=== PATIENT | male | born 1940 | race Caucasian/White ===

== ENCOUNTER 2016-08-24 02:28 | Inpatient (IN) | payer MEDICARE ==
--- NOTE | ~2016-08-24 | CR72 ---
[facility] A Service of [facility] RADIOLOGY TEXT RESULTS PATIENT: VILMA RYAN LOCATION: [place] [address] : 40 UNIT #: [id number] AGE: [address]: Natalia Munguia MD SEX: M ORDER DR: [id number] [facility] [address] [place], [place] [address] [id number] I MR#: [id number] #: [id number] NAME: FLYNN RYAN : 1940 SEX: M STUDY DATE/TIME: 08/24/2016 2:54 UNIT: [facility] ROOM: [facility] STUDY DESCRIPTION: CR Chest Single View Portable Attending Physician: Natalia Munguia M.D. Ordering Physician: Shade Jimenez M.D. Primary Care Physician: No Primary Care Physician MEDICAL IMAGING REPORT This report is preliminary unless electronic signature is present EXAM Chest x-ray, 08/24/2016. HISTORY 76-year-old male in the ED complaining of a 2-day history of shortness of air and weakness. TECHNIQUE AP portable chest x-ray. FINDINGS The exam shows moderately dense airspace consolidation throughout portions of the right lower lobe and right infrahilar region. Right upper lung and left lung are clear. Generalized pulmonary hyperinflation suggesting COPD. Heart size and pulmonary vascularity are normal. Blunting of the right costophrenic angle due to fluid or pleural thickening. Numerous tiny benign calcified granulomas scattered throughout both lungs. IMPRESSION 1. Dense airspace consolidation in the right infrahilar region and right lower lobe. Remaining portions of both lungs are clear. 2. Fluid or pleural thickening in the right costophrenic angle. 3. Likely COPD. 4. Numerous benign calcified granulomas scattered throughout both lungs. Dictated by... Boris Breaux M.D. THIS IS AN ELECTRONICALLY VERIFIED REPORT Boris Breaux M.D. at 08/24/2016 9:54 PM [id number] [facility] A Service of [facility] RADIOLOGY TEXT RESULTS PATIENT: VILMA RYAN LOCATION: [facility] 552-01 : 40 UNIT #: [id number] AGE: [address]: Natalia Munguia MD SEX: M ORDER DR: TD: 08/24/2016 13:53 JOB #: [id number] MEDICAL IMAGING REPORT Page 1 of 1 COPY
--- NOTE | ~2016-08-24 | CO ---
Unit #: [id number] #: [id number] Patient: VILMA RYAN [id number] [address] [address] [id number] I MR#: [id number] NAME: VILMA RYAN ROOM: 55 Age: 76 Sex: M Admission Date: 08/24/2016 : 1940 Attending Physician: Natalia Munguia M.D. Primary Care Physician: No Primary Care Physician Consultation Date: 08/24/2016 CONSULTATION REPORT REASON FOR CONSULTATION ICU management. HISTORY OF PRESENT ILLNESS This is a very pleasant, but poor historian, 76-year-old male with a past medical history significant for advanced chronic obstructive pulmonary disease, malnutrition, hypertension, hyperlipidemia and atrial fibrillation. The patient presented to the emergency room with progressive shortness of breath and cough for the last few days. He also admitted having some subjective fever, but he denied any nausea, vomiting or diarrhea. He stated that he has not been in the hospital for a while and he had 4 pneumonias over the last 10 years. The patient is on Symbicort and nebulizer at home. PAST MEDICAL HISTORY 1. Chronic obstructive pulmonary disease. 2. Gastroesophageal reflux disease. 3. Hypertension. 4. Hyperlipidemia. 5. Atrial fibrillation. 6. Malnutrition. PAST SURGICAL HISTORY None. SOCIAL HISTORY The patient quit smoking in 2002 after approximately 80 pack-year smoking history. He used to be a heavy drinker, but he quit many years ago. No history of drug abuse. He lives at home with his . FAMILY HISTORY Noncontributory. ALLERGIES No known drug allergies. HOME MEDICATIONS 1. Omeprazole. 2. Lopressor. 3. Nitrate. 4. Aspirin. 5. Coumadin. 6. Lisinopril. Unit #: [id number] #: [id number] Patient: VILMA RYAN 7. Pravastatin. 8. Amiodarone. 9. Fish oil. 10. Tylenol. REVIEW OF SYSTEMS Twelve point review of systems was obtained and negative except for that mentioned in the history of present illness. PHYSICAL EXAMINATION GENERAL: The patient is currently off BiPAP, in no acute distress. VITALS: Temperature 98.1, respiratory rate 16, O2 saturations 98%. HEENT: Atraumatic, normocephalic. Pupils equally round and reactive to light and accommodation. Extraocular muscles intact. NECK: Supple. No jugular venous distension. No lymphadenopathy. CHEST: Decreased breath sounds bilaterally with fine rhonchi at the bases. HEART: S1 and S2. No murmur, gallop or rub. ABDOMEN: Soft and nontender. Bowel sounds positive. No hepatosplenomegaly. EXTREMITIES: No edema or cyanosis. SKIN: No rashes. NEUROLOGIC: Awake, alert and oriented times three. No focal motor/sensory deficits. DIAGNOSTIC STUDIES LABORATORY: Creatinine 0.8, sodium 127, CO2 23, white blood cell count 9.7, hemoglobin 4.06, platelets 259. ASSESSMENT 1. Acute hypoxic respiratory failure. 2. Community acquired pneumonia. 3. Acute exacerbation of chronic obstructive pulmonary disease. 4. Malnutrition. 5. Gastroesophageal reflux disease. 6. Atrial fibrillation. PLAN 1. The patient will be weaned off BiPAP to oxygen and will titrate down as needed. 2. Aggressive pulmonary toilet, bronchodilator and IV steroids. 3. Will change antibiotics to Levaquin given his advanced chronic obstructive pulmonary disease and pneumonia. 4. Will continue the patient on Coumadin and monitor INR. 5. Will need physical therapy. Dictated by... Mellissa Sims M.D. EA/nael TD: 08/25/2016 06:33 JOB #: [id number] Unit #: [id number] #: [id number] Patient: VILMA RYAN CONSULTATION REPORT Page 1 of 1 X MELLISSA SPENCE MD X CONSULTATION REPORT
--- NOTE | ~2016-08-24 | DS ---
Unit #: [id number] #: [id number] Patient: VILMA RYAN [id number] [address] [place], [place] [address] [id number] I MR#: [id number] NAME: VILMA RYAN ROOM: 55 Age: 76 Sex: M Admission Date: 08/24/2016 : 1940 Discharge Date: 08/27/2016 Attending Physician: Naatlia Munguia M.D. Primary Care Physician: No Primary Care Physician DISCHARGE SUMMARY REASON FOR ADMISSION Acute hypoxic respiratory failure. HISTORY OF PRESENT ILLNESS/HOSPITAL COURSE Patient is a very pleasant, 76-year-old male with prior hospital admissions to other facilities secondary to acute hypoxic respiratory failure and/or COPD exacerbation with no prior history of ventilation requirement who presented with difficulty breathing for approximately 7 days. Over the past 48 hours prior to admission, he could only ambulate just a few steps without having to stop. He was admitted after it was noted his O2 saturations were in the low 80s. He was placed on telemetry floor. Consultation was placed to pulmonary services. Dr. Proctor and associates saw and evaluated patient. Initial chest x-ray raised the possibility of acute infiltrate and thus he was treated on the premise of community-acquired pneumonia. In consideration of his longstanding history of tobacco abuse as well as respiratory failure, patient underwent a CT chest, noncontrast, which revealed extensive airspace disease in the right lower lobe with areas of dinora consolidation in the mid to inferior right lower lobe. Appearance is most consistent with pneumonia. Followup to complete radiographic resolution was recommended. Dr. Proctor recommended follow up in approximately four weeks for repeat CT. Underlying COPD with extensive emphysema was also noted. Areas of mucous plugging were noted as well. There was also noted to be extensive atherosclerotic arterial calcifications in the coronary and systemic circulation as well as a moderate hiatal hernia. Findings were consistent with GERD and, in consideration of the right lower lobe pneumonia, possible underlying aspiration was considered. In regards to the calcifications, which were noted around coronary arteries, order was placed for 2D echocardiogram to be performed to ascertain heart function and/or ejection fraction; however, patient refused. He stated that he wanted to speak to his primary care physician as an outpatient in regards to cardiac workup. In regards to possibility of aspiration pneumonia as well as increased gastroesophageal reflux, we placed consultation to speech therapy services who saw and evaluated patient and recommended video function swallow study to which patient refused. Again, he stated that he felt as though he Unit #: [id number] #: [id number] Patient: VILMA RYAN could swallow fine. I discussed with him the possibility of upper GI endoscopy and/or GI consultation. However, he refused and stated that he would follow up with Dr. Mathew as an outpatient for ongoing care. At this point in time, patient is currently on 3-4 liters of O2, which represents a new requirement. He will be discharged on the same as he has been cleared by pulmonary services. Dr. Proctor has recommended p.o. amoxicillin 500 mg t.i.d. for 10 days. He is to continue his home nebulized solution as well as other routine medications, as detailed below. He will follow up with Dr. Mathew as an outpatient for ongoing care. FINAL DISCHARGE DIAGNOSES 1. Acute hypoxic respiratory failure. 2. Gastroesophageal reflux disease with possible aspiration. 3. Right lower lobe consolidation. 4. Community-acquired pneumonia versus aspiration pneumonia. 5. Prior history of paroxysmal atrial fibrillation on chronic anticoagulation with Coumadin. 6. Hyperlipidemia. 7. Tobacco abuse. 8. Glaucoma. FINAL DISCHARGE MEDICATIONS 1. DuoNeb aerosol solution q.6 hours scheduled. 2. Symbicort 160/4.5 two puffs b.i.d. 3. Amiodarone 200 mg p.o. every day. 4. Tylenol 500 mg p.o. q.6 p.r.n. 5. Coumadin 2.5 mg p.o. every day. 6. Lopressor 25 mg p.o. b.i.d. 7. Pravastatin 40 mg p.o. q.h.s. 8. Lisinopril 10 mg p.o. q.h.s. 9. Aspirin 81 mg daily. 10. Amoxicillin 1000 mg p.o. t.i.d. x10 days. 11. Protonix 40 mg p.o. every day. 12. Imdur 30 mg p.o. every day. DISCHARGE CONDITION Stable. DISCHARGE DISPOSITION Home. FOLLOWUP Follow up with Dr. Mathew, patient's primary care physician, as an outpatient within 7 days. Dictated by... Koko Buck/jocelynn TD: 08/28/2016 10:29 JOB #: [id number] Unit #: [id number] #: [id number] Patient: VILMA RYAN DISCHARGE SUMMARY Page 1 of 1 X Natalia Munguia MD X DISCHARGE SUMMARY
--- NOTE | ~2016-08-24 | EKG ---
PATIENT: FLYNN RYAN UNIT #: [id number] Ventricular Rate: 97 BPM Atrial Rate: 97 BPM P-R Interval: 160 ms QRS Duration: 154 ms Q-T Interval: 406 ms QTC Calculation(Bezet): 515 ms P Crawford: 78 degrees Calculated R Crawford: 31 degrees Calculated T Crawford: 28 degrees Diagnosis Line: Normal sinus rhythm Diagnosis Line: Left bundle branch block Diagnosis Line: Abnormal ECG Diagnosis Line: No previous ECGs available Diagnosis Line: Confirmed by CHICHI WALKER MD ([id number]) on Diagnosis Line: 08/24/2016 2:02:35 PM INTERPRETING MD: OLLIE
--- NOTE | ~2016-08-24 | HP ---
Unit #: [id number] #: [id number] Patient: FLYNN RYAN [id number] [address] [address] [id number] I MR#: [id number] NAME: FLYNN RYAN ROOM: 552 Age: 76 Sex: M Admission Date: 08/24/2016 : 1940 Attending Physician: Natalia Munguia M.D. Primary Care Physician: No Primary Care Physician HISTORY AND PHYSICAL REASON FOR ADMISSION Acute hypoxic respiratory failure. HISTORY OF PRESENT ILLNESS Patient is a very pleasant, 76-year-old male with prior hospitalizations at other facilities secondary to COPD exacerbation, but no prior hospitalization in our particular facility who states that over the past several days he had decreased difficulty with breathing and difficulty with dyspnea on exertion. He states over the past 48 hours, had worsened to the point where he could only ambulate a few steps. He called EMS services. Upon arrival, his otherwise saturations were noted to be 80% and, subsequently, he was brought to the ER for further evaluation. He states that he tried to use his inhaler at home with minimal success. PAST MEDICAL HISTORY COPD, GERD, hypertension, hyperlipidemia, and I believe atrial fibrillation on chronic anticoagulation with Coumadin; however, patient is unsure. PAST SURGICAL HISTORY None. CURRENT HOME MEDICATIONS 1. Omeprazole. 2. Lopressor. 3. Isosorbide dinitrate. 4. Aspirin. 5. Coumadin. 6. Lisinopril. 7. Pravastatin. 8. Amiodarone. 9. Symbicort. 10. Garlic. 11. Fish oil. 12. Tylenol p.r.n. ALLERGIES No known drug allergies. FAMILY HISTORY Noncontributory and not pertinent in this advanced age individual. SOCIAL HISTORY Patient quit smoking 2002 after approximate 80 pack/year smoking history. Unit #: [id number] #: [id number] Patient: FLYNN RYAN He also states he used to drink alcohol heavily in the past. He has not done so in 14 years. He denies illicit drug use. Lives at home with his . REVIEW OF SYSTEMS Please see HPI. Twelve-point otherwise negative, except for those pertinent positives noted in the HPI. PHYSICAL EXAMINATION ON ADMISSION VITAL SIGNS: Temperature 97.8, pulse 99, respiratory rate 24, and blood pressure 157/102. GENERAL APPEARANCE: 76-year-old male sitting up in no acute distress. Currently on 10 liters O2. HEENT: Head: Atraumatic and normocephalic. NECK: Supple. Accessory muscle use noted. No JVD noted. CVS: S1 and S2, irregularly irregular. No heart murmur heard. RESPIRATORY: Coarse rhonchi noted bilaterally with prolonged expiration. GI/ABDOMEN: Nontender and nondistended. LOWER EXTREMITIES: No evidence of lower extremity edema. SKIN: Upper extremities reveal numerous bruising and/or scar polo. Lower extremities reveal chronic venostasis changes. NEUROLOGIC: Patient is A and O x3. PSYCHIATRIC: Patient demonstrates normal mood and affect. ER COURSE Patient received Solu-Medrol, Rocephin, as well as Zithromax. DIAGNOSTIC STUDIES LABORATORY: Initial laboratory studies yielded cardiac enzymes, first set, negative. INR 1.9. BMP: Sodium showing at 127 and creatinine normal. LFTs normal. Lactic acid 1.3. CBC shows a white count of 9.7 and hemoglobin 13.5. IMAGING: Initial chest x-ray, preliminary read, shows acute infiltrate. Official read currently pending. INITIAL IMPRESSION 1. Acute hypoxic respiratory failure. 2. Acute exacerbation of COPD. 3. Community-acquired pneumonia. 4. Chronic anticoagulation, I believe, secondary to atrial fibrillation. 5. Hypertension. 6. Hyperlipidemia. PLAN Admission telemetry floor. Solu-Medrol. Aerosols. IV antibiotics. CT chest. Routine laboratory studies. Obtain previous records from PCP office into reasoning behind Coumadin. Symptom management. Try to wean O2 as much as tolerated. Further hospital course to follow. Dictated by Koko Buck/jocelynn TD: 08/24/2016 13:17 Unit #: [id number] #: [id number] Patient: FLYNN RYAN JOB #: [id number] HISTORY AND PHYSICAL Page 1 of 1 X Natalia Munguia MD HISTORY AND PHYSICAL
--- NOTE | ~2016-08-24 | CT57 ---
[facility] A Service of [facility] RADIOLOGY TEXT RESULTS PATIENT: VILMA RYAN LOCATION: [facility] 55- : 40 UNIT #: [id number] AGE: [address]: Natalia Munguia MD SEX: M ORDER DR: [id number] [facility] [address] [place], [place] [address] [id number] I MR#: [id number] Acc #: [id number] NAME: VILMA RYAN : 1940 SEX: M STUDY DATE/TIME: 08/24/2016 13:58 UNIT: [facility] ROOM: [facility] STUDY DESCRIPTION: CT Chest Wo Cont Attending Physician: Natalia Munguia M.D. Ordering Physician: Natalia Munguia M.D. Primary Care Physician: No Primary Care Physician MEDICAL IMAGING REPORT This report is preliminary unless electronic signature is present EXAM Chest CT, 08/24/2016. HISTORY Question pneumonia. Abnormal chest x-ray. Hypoxia, short of air for 2 days. History of COPD. TECHNIQUE CT chest performed without administration of intravenous contrast. This CT exam was performed with one or more of the following radiation dose reduction techniques: automatic exposure control, adjustment of mA and/or kV according to patient size, and iterative reconstruction. COMPARISON Comparison to chest radiograph from same date. FINDINGS Visualized thyroid unremarkable. No axillary adenopathy. Precarinal 11 mm short-axis lymph node, likely reactive in nature given findings elsewhere on scan. There is an approximately 12 mm short-axis right hilar node also favored to be reactive in nature. Heart is normal in size. There are prominent coronary arterial calcifications. Trace right pleural fluid. Not a drainable fluid collection. The liver shows 12 mm left hepatic lobe segment 2 cyst. No suspicious hepatic parenchymal abnormality. Visualized gallbladder unremarkable. Spleen, pancreas, adrenal glands, upper renal poles unremarkable. No upper abdominal adenopathy. Moderate hiatal hernia. There is some fluid in the esophagus. This likely reflects gastroesophageal reflux and could place the patient at increased risk for aspiration. There is a moderate amount of food debris in the stomach. Correlate with ingestion history. Probable duodenal diverticulum second portion of duodenum measuring about 3.8 cm in diameter. This may represent volume averaging through a portion [facility] A Service of [facility] & [facility] RADIOLOGY TEXT RESULTS PATIENT: VILMA RYAN LOCATION: [facility] 552-01 : 40 UNIT #: [id number] AGE: [address]: Natalia Munguia MD SEX: M ORDER DR: of the hepatic flexure of colon. The lungs show underlying emphysema. Irregular densities in the bilateral upper lung zones with some upward retraction of bronchovascular structures favored to represent chronic fibrotic change. Correlation with any prior studies would be useful. Ill-defined branching density in the left apex measuring approximately 6-10 mm. Probably architecturally distorted vascular structure or mucus impacted bronchial. True nodule not excluded. Three-month CT followup recommended unless there are outside studies demonstrating prolonged stability. Bronchial wall thickening in the lungs bilaterally, more pronounced in the bilateral lower lobes and generally more pronounced on the right than left. Multiple calcified granulomata. Small focus of patchy density left lower lobe posteriorly could represent a small focus of pneumonia, atelectasis, or chronic change. Extensive patchy densities throughout the right lower lobe with some areas of bronchial mucous plugging and dense peripheral airspace disease. Appearance favored to represent extensive right lower lobe pneumonia with areas of dinora consolidation. Some of the margins of the peripheral areas of consolidation have vaguely rounded configurations. Followup to complete radiographic resolution is recommended. If findings do not resolve in the near-term with treatment for pneumonia, then further evaluation with bronchoscopy may be warranted. Again, pneumonia is favored. Given gastroesophageal findings and distribution of right lower lobe presumed pneumonia, correlate with any clinical concern for aspiration. Wall thickening likely reflects components of both acute and chronic bronchitis. Atherosclerotic arterial calcifications. No aortic aneurysm. 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 No acute-appearing bony abnormality. IMPRESSION 1. Extensive airspace disease in the right lower lobe with areas of dinora consolidation in the periphery of the mid to inferior right lower lobe. Appearance most consistent with pneumonia. Some of the areas of airspace consolidation have vaguely rounded configuration. Followup to complete radiographic resolution is strongly recommended. If the findings do not resolve in the near-term with treatment for pneumonia, then further assessment with bronchoscopy or percutaneous sampling would be recommended. Pneumonia is strongly favored. 2. Underlying COPD with extensive emphysema. Bronchial wall thickening in the lungs bilaterally, more pronounced in the right lung overall and in the mid to lower lung zones bilaterally likely reflecting components of both acute and chronic bronchitis. 3. Areas of mucous plugging in the right lower lobe. 4. Somewhat tubular branching structure in the left lung apex measuring 6-10 mm in diameter. Exact etiology unclear. It may represent architecturally distorted mucus impacted bronchus or volume averaging through an usual vascular structure. True pulmonary nodule not excluded. 3-month CT followup recommended. 5. Extensive atherosclerotic arterial calcifications in coronary and systemic circulation. [facility] A Service of [facility] RADIOLOGY TEXT RESULTS PATIENT: VILMA RYAN LOCATION: [facility] : 40 UNIT #: [id number] AGE: [address]: Natalia Munguia MD SEX: M ORDER DR: 6. There are some mildly enlarged mediastinal and right hilar nodes, likely benign/reactive in nature and related to the presumed right pneumonia. 7. Moderate hiatal hernia. Air and fluid seen in the esophagus. Findings suggest gastroesophageal reflux, given this appearance and the right lower lobe presumed pneumonia. Correlate with any clinical concern for aspiration. 8. 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 No acute-appearing bony abnormality. 9. Left hepatic lobe cyst. 10. 3.8 cm second portion duodenum diverticulum versus volume averaging with colon. No acute abnormality suggested in the visualized upper abdomen. Dictated by... Oswaldo Espino M.D. THIS IS AN ELECTRONICALLY VERIFIED REPORT Oswaldo Espino M.D. at 08/26/2016 11:31 AM Luisa TD: 08/25/2016 07:16 JOB #: [id number] MEDICAL IMAGING REPORT Page 1 of 1 COPY
[2016-08-24 03:29] LABS: BASOPHIL% 0.2 % (0-2.5); EOSINOPHIL# 0.1 X10e3 (0-0.7); EOSINOPHIL% 0.6 % (0.0-7.0); HEMATOCRIT 40.1 % (38.0-50.0); HEMOGLOBIN 13.5 gm/dL (13.0-16.0); LYMPHOCYTE# 0.4 X10e3 (1.0-3.5); LYMPHOCYTE% 4.6 % (17.0-45.0); MEAN CORPUSCULAR HGB CONC 33.7 g/dL (30-36); MEAN PLATELET VOLUME 7.2 FL (6.5-11.5); MONOCYTE# 0.8 X10e3 (0-1.0); MONOCYTE% 7.9 % (3.0-12.0); NEUTROPHIL# 8.4 X10e3 (1.5-7.1); NEUTROPHIL% 86.7 % (40-75); PLATELET COUNT 259 X10e3 (140-420); RED BLOOD COUNT 4.66 X10e (3.90-5.60); RED CELL DISTRIBUTION WIDTH 13.6 % (11.0-15.5); WHITE BLOOD COUNT 9.7 X10e3 (4.0-10.5)
[2016-08-24 03:34] LABS: ARTERIAL BLD GAS O2 SATURATION 95.8 % (90.0-100.0); ARTERIAL BLOOD GAS ALLEN TEST NORMAL; ARTERIAL BLOOD GAS ART SITE RIGHT RADIAL; ARTERIAL BLOOD GAS HCO3 23.4 mmol/L; ARTERIAL BLOOD GAS MET HB 0.6 %sat (0.0-2.0); ARTERIAL BLOOD GAS PCO2 35.1 mmHg (35.0-45.0); ARTERIAL BLOOD GAS PO2 87.7 mmHg (80.0-100); ARTERIAL BLOOD GAS pH 7.433 (7.350-7.450); ARTERIAL DRAW? YES
[2016-08-24 03:42] LABS: POC - CKMB 11.5 ng/mL (0.0-7.9); POC - TROPONIN <0.05 ng/mL (<=0.05)
[2016-08-24 03:43] LABS: INR 1.9; PROTHROMBIN TIME (PATIENT) 20.1 SECONDS (9.6-11.5)
[2016-08-24 03:58] LABS: ALBUMIN SERUM 3.9 g/dL (3.5-5.0); BILIRUBIN, DIRECT 0.2 mg/dL (0.0-0.2); BILIRUBIN,INDIRECT 0.5 mg/dL (0.0-0.9); BILIRUBIN,TOTAL 0.7 mg/dL (0.2-2.0); BUN/CREATININE RATIO 22.5; CALCIUM SERUM 8.6 mg/dL (8.4-10.2); CREATININE SERUM 0.8 mg/dL (0.6-1.4); GLOM FILT RATE Estimated 86.8 mL/min (>60); POTASSIUM 4.6 mmol/L (3.5-5.1); PROTEIN TOTAL SERUM 7.1 g/dL (6.0-8.3)
[2016-08-24 04:08] LABS: DIFF IND NO
[2016-08-24] MEDS ORDERED: BRIMONIDINE5 ML OD (04:11)
[2016-08-24] MEDS ORDERED: LOPRESSOR PO (04:12)
[2016-08-24] MEDS ORDERED: OMEPRAZOLE20 M2 PO (04:12)
[2016-08-24] MEDS ORDERED: DORZOLAMIDE HCL10 M1 OU (04:12)
[2016-08-24] MEDS ORDERED: ISORDIL PO (04:13)
[2016-08-24] MEDS ORDERED: AMIODARONE HCL200 MG PO (04:13)
[2016-08-24] MEDS ORDERED: AMIODARONE HCL100 MG PO (04:16)
[2016-08-24] MEDS ORDERED: PRAVASTATIN SOD40 MG PO (04:16)
[2016-08-24] MEDS ORDERED: ASPIRIN81 M2 PO (04:17)
[2016-08-24] MEDS ORDERED: COUMADIN2.5 MG PO (04:17)
[2016-08-24] MEDS ORDERED: ACETAMINOPHEN PO (04:17)
[2016-08-24] MEDS ORDERED: LISINOPRIL10 MG PO (04:17)
[2016-08-24] MEDS ORDERED: ODORLESS GARL1250 MG PO (04:18)
[2016-08-24] MEDS ORDERED: FISH OIL300 MG PO (04:18)
[2016-08-24] MEDS ORDERED: SYMBICORT INH (04:18)
[2016-08-24] MEDS ORDERED: ALB/IPRATROPIUM/1 E2 INH (04:19)
[2016-08-25 06:08] LABS: INR 1.5; PROTHROMBIN TIME (PATIENT) 16.5 SECONDS (9.6-11.5)
[2016-08-25 06:14] LABS: CALCIUM SERUM 8.7 mg/dL (8.4-10.2); CREATININE SERUM 0.7 mg/dL (0.6-1.4); GLOM FILT RATE Estimated 91.7 mL/min (>60); POTASSIUM 4.2 mmol/L (3.5-5.1)
[2016-08-25 06:37] LABS: HEMATOCRIT 35.2 % (38.0-50.0); MEAN CELL VOLUME 86.6 FL (83-96); MEAN CORPUSCULAR HEMOGLOBIN 28.2 PG (28-34); MEAN CORPUSCULAR HGB CONC 32.6 g/dL (30-36); MEAN PLATELET VOLUME 7.9 FL (6.5-11.5); RED BLOOD COUNT 4.06 X10e (3.90-5.60); RED CELL DISTRIBUTION WIDTH 13.9 % (11.0-15.5); WHITE BLOOD COUNT 14.1 X10e3 (4.0-10.5)
[2016-08-25 06:38] LABS: HEMOGLOBIN 11.5 gm/dL (13.0-16.0)
[2016-08-25 09:24] LABS: LEGIONELLA AG URINE NEG (NEG)
[2016-08-26 06:14] LABS: HEMATOCRIT 36.1 % (38.0-50.0); MEAN CELL VOLUME 86.2 FL (83-96); MEAN CORPUSCULAR HEMOGLOBIN 28.5 PG (28-34); MEAN CORPUSCULAR HGB CONC 33.1 g/dL (30-36); MEAN PLATELET VOLUME 7.6 FL (6.5-11.5); RED BLOOD COUNT 4.19 X10e (3.90-5.60); RED CELL DISTRIBUTION WIDTH 13.9 % (11.0-15.5)
[2016-08-26 06:50] LABS: ALBUMIN SERUM 3.4 g/dL (3.5-5.0); BILIRUBIN,TOTAL 0.7 mg/dL (0.2-2.0); BUN/CREATININE RATIO 25.71; CALCIUM SERUM 8.7 mg/dL (8.4-10.2); CREATININE SERUM 0.7 mg/dL (0.6-1.4); GLOM FILT RATE Estimated 91.7 mL/min (>60); MAGNESIUM 1.7 mg/dL (1.6-3.0); PROTEIN TOTAL SERUM 6.6 g/dL (6.0-8.3)
[2016-08-26 10:30] LABS: INR 1.8; PROTHROMBIN TIME (PATIENT) 19.1 SECONDS (9.6-11.5)
[2016-08-27 05:53] LABS: HEMATOCRIT 36.7 % (38.0-50.0); MEAN CELL VOLUME 87.1 FL (83-96); MEAN CORPUSCULAR HEMOGLOBIN 28.5 PG (28-34); MEAN CORPUSCULAR HGB CONC 32.7 g/dL (30-36); MEAN PLATELET VOLUME 7.3 FL (6.5-11.5); RED BLOOD COUNT 4.21 X10e (3.90-5.60); WHITE BLOOD COUNT 12.4 X10e3 (4.0-10.5)
[2016-08-27 06:18] LABS: INR 2.4; PROTHROMBIN TIME (PATIENT) 26.1 SECONDS (9.6-11.5)
[2016-08-27 06:21] LABS: BUN/CREATININE RATIO 26.25; CALCIUM SERUM 8.6 mg/dL (8.4-10.2); CREATININE SERUM 0.8 mg/dL (0.6-1.4); GLOM FILT RATE Estimated 86.8 mL/min (>60); POTASSIUM 4.3 mmol/L (3.5-5.1)
[2016-08-27] MEDS ORDERED: PREDNISONE PO (14:22)
[2016-08-27] MEDS ORDERED: AMOXICILLIN500 M1 PO (14:22)
[2016-08-27] MEDS ORDERED: PROTONIX PO (14:23)
== END 2016-08-27 16:51 | disposition home or self-care (01) | DRG 177 ==
LOC: CED 02:28 → C5B 05:07 → CEDOF 05:07 → C5B 11:34
PROVIDERS: Emergency Medicine; Family Medicine; Internal Medicine
DX: J69.0 Pneumonitis due to inhalation of food and vomit (principal); J96.01 Acute respiratory failure with hypoxia; E43 Unspecified severe protein-calorie malnutrition; I48.0 Paroxysmal atrial fibrillation; E46 Unspecified protein-calorie malnutrition; R13.10 Dysphagia, unspecified; E87.1 Hypo-osmolality and hyponatremia; J44.1 Chronic obstructive pulmonary disease with (acute) exacerbation; I10 Essential (primary) hypertension; E78.5 Hyperlipidemia, unspecified; K21.9 Gastro-esophageal reflux disease without esophagitis; Z79.01 Long term (current) use of anticoagulants; Z79.82 Long term (current) use of aspirin; Z87.891 Personal history of nicotine dependence; J15.4 Pneumonia due to other streptococci; H40.9 Unspecified glaucoma; Z68.22 Body mass index [BMI] 22.0-22.9, adult
CPT/HCPCS: 36600; 71010; 71250; 80048; 80053; 80076; 82553; 82607; 82803; 82947; 83605; 83735; 84443; 84484; 85025; 85027; 85610; 87040; 87449; 87899; 92526; 92610; 93005; 94640; 94660; 94760; 96374; 99291; G8996-GN; G8997-GN; G8998-GN; J0456; J0696; J1956; J2060; J2930; J3420